=== PATIENT | male | born 1945 | race Caucasian/White ===

== ENCOUNTER → 2020-02-17 | Outpatient (CLI) | payer MEDICARE, OTHER | LOC: ZCOL.LAB 12:35 | DX: Z00.00 Encounter for general adult medical examination without abnormal findings (principal) ==

== ENCOUNTER → 2020-02-18 | Outpatient (CLI) | payer MEDICARE, OTHER ==
[2020-02-18 10:00] LABS: BASO # 0.1 (0.0-0.2); BASO % 0.6 % (0.0-2.0); EOS # 0.3 (0.0-0.7); EOS % 2.5 % (0-4.0); GRAN # 5.7 (1.4-6.5); GRAN % 58.1 % (42.2-75.2); HEMATOCRIT 47.4 % (42.0-52.0); HEMOGLOBIN 15.5 g/dl (13.5-18.0); LYMPH # 2.6 (1.2-3.4); LYMPH % 26.3 % (20.0-51.0); MEAN CELL VOLUME 89 fl (80.0-100.0); MEAN CORPUSCULAR HEMOGLOBIN 29 pg (27.0-31.0); MEAN CORPUSCULAR HGB CONC 33 g/dl (33.0-37.0); MEAN PLATELET VOLUME 10.1 fl (7.4-10.4); MONO # 1.2 (0.1-0.6); MONO % 12.3 % (1.7-9.3); PLATELET COUNT 197 K/mm3 (130-400); RED BLOOD COUNT 5.32 M/mm3 (4.20-5.60); REDCELL DISTRIBUTION WIDTH-CV 13.2 % (11.5-14.5)
== END ==
LOC: ZCOL.LAB 09:49
PROVIDERS: Internal Medicine
DX: Z00.00 Encounter for general adult medical examination without abnormal findings (principal)

== ENCOUNTER → 2020-03-16 | Outpatient (CLI) | payer MEDICARE, OTHER | LOC: ZCOL.LAB 17:19 | DX: E61.2 Magnesium deficiency (principal) ==

== ENCOUNTER 2020-11-07 17:41 | Inpatient (IN) | payer MEDICARE ==
[~2020-11-07] VITALS: Ht 177.8 cm; Wt 82.5 kg
[2020-11-07 18:30] LABS: BASO % 0.2 % (0.0-2.0); EOS # 0.1 (0.0-0.7); EOS % 0.4 % (0-4.0); GRAN # 13.3 (1.4-6.5); GRAN % 83.1 % (42.2-75.2); HEMATOCRIT 46.7 % (42.0-52.0); HEMOGLOBIN 15.1 g/dl (13.5-18.0); LYMPH # 1.2 (1.2-3.4); LYMPH % 7.2 % (20.0-51.0); MEAN CELL VOLUME 90 fl (80.0-100.0); MEAN CORPUSCULAR HEMOGLOBIN 29 pg (27.0-31.0); MEAN CORPUSCULAR HGB CONC 32 g/dl (33.0-37.0); MEAN PLATELET VOLUME 10.2 fl (7.4-10.4); MONO # 1.4 (0.1-0.6); MONO % 8.5 % (1.7-9.3); PLATELET COUNT 196 K/mm3 (130-400); RED BLOOD COUNT 5.17 M/mm3 (4.20-5.60); REDCELL DISTRIBUTION WIDTH-CV 12.8 % (11.5-14.5)
[2020-11-07 18:32] LABS: MUCOUS Present /lpf; PH 5 (5-8); SQUAMOUS EPITHELIAL None Seen /hpf; URINE APPEARANCE Hazy; URINE BACTERIA None Seen /hpf; URINE BILIRUBIN Negative (NEGATIVE); URINE BLOOD Negative (NEGATIVE); URINE COLOR Yellow; URINE GLUCOSE Negative (NEGATIVE); URINE KETONE Negative (NEGATIVE); URINE LEUKOCYTE ESTERASE 1+ (NEGATIVE); URINE NITRATE Negative (NEGATIVE); URINE PROTEIN(semi-quant) 2+ (NEGATIVE); URINE RBC 20-50 /hpf; URINE UROBILINOGEN Negative (NEGATIVE); URINE WBC >50 /hpf
[2020-11-07 18:35] LABS: COLLECTION METHOD CLEAN CATCH
[2020-11-07 18:42] LABS: ALBUMIN 4.2 gm/dL (3.5-5.0); BILIRUBIN,TOTAL 0.4 mg/dL (0.0-1.0); CALCIUM 9.3 mg/dL (8.4-10.2); CREATININE, serum 0.88 (0.66-1.25); POTASSIUM 3.8 mmol/L (3.4-5.0); TOTAL PROTEIN 7.7 gm/dL (6.4-8.2)
[2020-11-07] MEDS ORDERED: TYLENOL 500MG500 MG PO ×2 (19:19→19:20)
[2020-11-07] MEDS ORDERED: LIPITOR 40MG TA40 MG PO (19:21)
[2020-11-07] MEDS ORDERED: ASPIRIN 81M81 MG/TA2 PO (19:21)
[2020-11-07] MEDS ORDERED: CENTRUM SILVER1 CTB PO (19:32)
[2020-11-07] MEDS ORDERED: DICLOFENAC SOD2.5 ML TOP ×2 (19:33→19:34)
[2020-11-07] MEDS ORDERED: ARICEPT10 MG (19:34)
[2020-11-07] MEDS ORDERED: ARICEPT10 MG PO (19:34)
[2020-11-07] MEDS ORDERED: MELATONIN 3 MG-1 TAB PO (19:35)
[2020-11-07] MEDS ORDERED: LASIX 20MG TABL20 MG PO (19:35)
[2020-11-07] MEDS ORDERED: TOPROL XL 50MG50 MG PO (19:36)
[2020-11-07] MEDS ORDERED: NITROSTAT0.4 MG/TAB SL (19:36)
[2020-11-07] MEDS ORDERED: OMEGA-3 1000 MG1 CAP PO (19:37)
[2020-11-07] MEDS ORDERED: PLAVIX 75MG TAB75 MG PO (19:38)
[2020-11-07] MEDS ORDERED: PROTONIX20 MG PO (19:38)
[2020-11-07] MEDS ORDERED: FLOMAX 0.40.4 MG/CAP PO (19:39)
[2020-11-07] MEDS ORDERED: TUMS DUAL ACTIO1 CTB (19:39)
[2020-11-07 22:11] VITALS: BP 147/67; PULSE 121; TEMP 98.8
[2020-11-08] VITALS (11 sets, daily range): BP systolic 110–145; BP diastolic 42–61; PULSE 98–109; TEMP 97.9–98.7
--- NOTE | 2020-11-08 01:40 | NUR ---
2129- ARRIVES TO FLOOR PER CART. TRANSFERD TO BED W SLIDE BOARD. NOT ALERT,VERY DROWSY. VS OBTAINED. RA. 3 LITERS N/C AND REPOSITIONED GOES TO 94%. JAEGER CATH INSERTED PER [facility] ATTENDANT. CLEAR YELLOW DRAINAGE TO DD. IV FLUIDS RUNNING ORDER. SCD APPLIED. PT WAKES SHORTLY ONLY DURING JAEGER INSERT BUT GOES BACK TO SLEEP. HAS WOKE A FEW TIMES AND PULLED AT LINES, MONITORING. SEVERE DEMENTIA REPORTED BY ER NURSE UNABLE TO OBTAIN HX FROM PT. USED CARE HOME PAPERWORK FOR MEDS/MAR. BLOOD CULTURES PENDING. ON TELE. ORTHO CONSULTED. PT IS NPO AT THIS TIME.
--- NOTE | 2020-11-08 06:03 | NUR ---
RESTED MOST OF THE NIGHT WITHOUT INCIDENT. WOULD OCC PULL AT CATH OR LINES. APPEARS TO BE UNAWARE OF BROKEN HIP. ORTHO ROUNDS THIS AM IT MAY 3 DAYS DUE TO BLOOD THINNER PLAVIX BEING TAKE BEFORE SURG CAN BE DONE.
--- NOTE | 2020-11-08 06:33 | NUR ---
DR WHEELER ORTHO DOC CALLS UNIT TO KEEP PT NPO MAY BE ABLE TO DO SUGERY TODAY AFTER ALL. ORDER PLACED.
--- NOTE | 2020-11-08 06:38 | NUR ---
ATTEMPTED TO INTERGRATE PACEMAKER. [employer] NOT RECONIZING. WILL PASS ON TO DAY SHIFT.
[2020-11-08 07:13] LABS: INR 1.3 (0.8-3.0); PROTHROMBIN TIME 14.6 SECONDS (9.7-12.8)
[2020-11-08 07:14] LABS: HEMATOCRIT 42.6 % (42.0-52.0); HEMOGLOBIN 13.8 g/dl (13.5-18.0); MEAN CELL VOLUME 89 fl (80.0-100.0); MEAN CORPUSCULAR HEMOGLOBIN 29 pg (27.0-31.0); MEAN CORPUSCULAR HGB CONC 32 g/dl (33.0-37.0); MEAN PLATELET VOLUME 9.8 fl (7.4-10.4); PLATELET COUNT 186 K/mm3 (130-400); RED BLOOD COUNT 4.79 M/mm3 (4.20-5.60); REDCELL DISTRIBUTION WIDTH-CV 12.8 % (11.5-14.5)
[2020-11-08 07:32] LABS: CALCIUM 8.6 mg/dL (8.4-10.2); CREATININE, serum 0.66 (0.66-1.25); MAGNESIUM 1.7 mg/dL (1.6-2.3); POTASSIUM 3.5 mmol/L (3.4-5.0)
[2020-11-08 09:24] LABS: BAND 2 % (0-10); EOSINOPHIL 2 % (0-4); LYMPHOCYTE 4 % (20.0-51.0); NEUTROPHILS 85 % (42.0-75.2)
[2020-11-08 09:27] LABS: PLATELET ESTIMATE NORMAL (NORMAL)
--- NOTE | 2020-11-08 09:30 | NUR ---
Patient confused, opens eyes to verbal stimuli, conversation inappropriate. RLE with pulses palpable, externally rotated and shortened. Ordoñez catheter in place to dependent drainage, draining clear yellow urine. No s/s pain or discomfort.
--- NOTE | 2020-11-08 09:57 | NUR ---
Director Operations contacted the patient's [facility] Sidney # to complete intake. The patient resides at [facility] in the Memory Care Unit. The patient does not use DME to ambulate and is independent with ADLs. The patient's PCP is Dr. Izquierdo. The patient does not have advanced directives in the EMR but Sidney sent a copy to this SW. A copy placed in the chart. [facility] designates Sidney as primary and Zelda Richardson ([id number]) as secondary. Due to the patient's hip facture the patient will likely be needing post acute rehab. SW discussed Medicare.gov's list of SNFs. The first choice is [facility] and second choice is [facility]. Referrals sent. Director Operations contacted KADY Joe with [facility]. She confirms the patient is from the memory care unit and is independent. The patient does have a cane but does not use it. He is not on oxygen at baseline. *Discharge disposition* SNF. Referrals sent to [facility] and [facility]. Awaiting screens.
--- NOTE | 2020-11-08 11:25 | NUR ---
To surgery with surgical staff at this time.
--- NOTE | 2020-11-08 15:15 | NUR ---
Returns from surgery at this time. Assessment unchanged except RLE with incision CDI, Aquacel in place. No s/s pain noted.
--- NOTE | 2020-11-08 20:00 | NUR ---
Patient opens eyes to this nurse speaking. Assisted patient in eating some of his clear liquids. Patient is alert but not oriented. Does not answer questions appropriately. Mits put on patient's hands because he was pulling at his IV and catheter. Ordoñez catheter draining clear yellow urine. Aqaucell to right hip clean, dry, and intact. SCDs and teds on bilateral lower extremities. Bed alarm on.
--- NOTE | 2020-11-08 22:00 | NUR ---
Patient restless and had gotten the mits off. He was pulling at his catheter. Mits put back on. Tylenol and melatonin administered.
[2020-11-09] VITALS (7 sets, daily range): BP systolic 98–137; BP diastolic 43–67; PULSE 84–102; TEMP 97.1–99
--- NOTE | 2020-11-09 06:00 | NUR ---
When entering room this morning, patient's IV was on the floor and patient had blood on his gown. PAtient was cleaned up and a new IV was put in his right forearm. Ramys put back on patient.
[2020-11-09 06:43] LABS: HEMATOCRIT 37.8 % (42.0-52.0); HEMOGLOBIN 12.1 g/dl (13.5-18.0); MEAN CELL VOLUME 92 fl (80.0-100.0); MEAN CORPUSCULAR HEMOGLOBIN 29 pg (27.0-31.0); MEAN CORPUSCULAR HGB CONC 32 g/dl (33.0-37.0); MEAN PLATELET VOLUME 10.3 fl (7.4-10.4); PLATELET COUNT 179 K/mm3 (130-400); RED BLOOD COUNT 4.13 M/mm3 (4.20-5.60); REDCELL DISTRIBUTION WIDTH-CV 12.9 % (11.5-14.5)
[2020-11-09 07:03] LABS: CALCIUM 8.8 mg/dL (8.4-10.2); CREATININE, serum 0.63 (0.66-1.25); MAGNESIUM 1.7 mg/dL (1.6-2.3); POTASSIUM 3.9 mmol/L (3.4-5.0)
[2020-11-09 07:21] LABS: BAND 8 % (0-10); LYMPHOCYTE 5 % (20.0-51.0); NEUTROPHILS 76 % (42.0-75.2); PLATELET ESTIMATE NORMAL (NORMAL)
--- NOTE | 2020-11-09 07:45 | NUR ---
Upon entering patient room, patient had removed telemetry box, pulled IV out, removed gown, removed mattson catheter from statlock and removed oxygen tubing. This was second IV place r/t patient pulling them out in the last hour. Mattson catheter removed for patient safety. Patient educated on need for all of the above. No c/o at this time.
--- NOTE | 2020-11-09 12:23 | NUR ---
Patient alert, pleasantly confused. See assessment. RLE with Aquacel CDI, no redness noted around dressing. Pulses palpable to RLE, limited ROM. FWB. No c/o numbness or tingling. No c/o at this time.
--- NOTE | 2020-11-09 13:21 | NUR ---
FOUND ON RA 73% . PLACED BACK ON 4 LPM NC 91% RN NOTIFIED
--- NOTE | 2020-11-09 13:30 | NUR ---
Initial visit; Patient thanked Serger for looking in on him and offering God's blessings.
--- NOTE | 2020-11-09 15:17 | NUR ---
Tyshawn with [facility] reports the team has no current concerns about admitting the patient when ready. Occupational Therapist faxed udpates to [facility] and [facility]. *Discharge disposition* [facility] for SNF then transition back to [facility]
--- NOTE | 2020-11-10 03:21 | NUR ---
Patient incontinent of urine and had taken his gown and tele off. Cleaned patient up, gave bed bath, and put tele back on. Patient is now sleeping with unlabored breathing. Bed alarm on.
[2020-11-10 03:24] VITALS: BP 127/52; PULSE 93; TEMP 97.6
[2020-11-10 07:06] LABS: CALCIUM 8.5 mg/dL (8.4-10.2); CREATININE, serum 0.69 (0.66-1.25); POTASSIUM 3.7 mmol/L (3.4-5.0)
[2020-11-10 07:07] LABS: HEMATOCRIT 37.1 % (42.0-52.0); HEMOGLOBIN 12.1 g/dl (13.5-18.0); MEAN CELL VOLUME 89 fl (80.0-100.0); MEAN CORPUSCULAR HEMOGLOBIN 29 pg (27.0-31.0); MEAN CORPUSCULAR HGB CONC 33 g/dl (33.0-37.0); MEAN PLATELET VOLUME 10.4 fl (7.4-10.4); PLATELET COUNT 166 K/mm3 (130-400); RED BLOOD COUNT 4.16 M/mm3 (4.20-5.60); REDCELL DISTRIBUTION WIDTH-CV 12.9 % (11.5-14.5)
[2020-11-10 07:51] LABS: EOSINOPHIL 8 % (0-4); LYMPHOCYTE 8 % (20.0-51.0); NEUTROPHILS 75 % (42.0-75.2); PLATELET ESTIMATE NORMAL (NORMAL)
[2020-11-10 07:52] LABS: HYPOCHROMIA 2+
[2020-11-10 08:32] VITALS: BP 132/61; PULSE 82; TEMP 98.8
[2020-11-10] MEDS ORDERED: AMOXICILLIN 8751 TAB PO (08:46)
[2020-11-10] MEDS ORDERED: OSCAL 500 TAB500 MG PO (08:47)
[2020-11-10] MEDS ORDERED: VITAMIN C500 MG PO (08:48)
[2020-11-10] MEDS ORDERED: ROXICODONE 55 MG/TAB PO (08:49)
[2020-11-10 11:00] VITALS: BP 132/61; PULSE 82; TEMP 98.8
--- NOTE | 2020-11-10 11:21 | NUR ---
The patient is to discharge today, 11/10 to [facility] for post acute rehab. After post acute rehab the patient will transition back to [facility] Memory Care Unit. Polystyrene Molding Machine Tender faxed discharge orders. The patient transported at 1100. SW contacted the patient's son, Sidney to provide the above update. He was in agreeance. ARNULFO presented the IM form to Sidney. He verbalized understanding and gave this SW permission to sign on his behalf. A copy provided to the patient and original placed in the chart. There are no additional needs at this time.
--- NOTE | 2020-11-10 12:26 | NUR ---
Patient alert, confused per his norm. See assessment. RLE with dressing CDI, no redness noted around dressing. Pulses palpable to BLE. C/o pain to RLE with movement. RAMYA hose and SCDs in place. No c/o at this time.
--- NOTE | 2020-11-10 13:41 | NUR ---
Report called to Heather at [facility]. Patient transferred to [facility] via wheelchair with transporations staff at 1335. Paperwork sent.
== END 2020-11-10 13:35 | DRG 522 ==
LOC: COL.ER 17:41 → SURG 19:03 → COL.ER 19:03 → SURG 11-08 12:50
PROVIDERS: Internal Medicine; Nurse Practitioner Primary Care; Orthopaedic Surgery; Physician Assistant; Student in an Organized Health Care Education/Training Program; ADMIT Hospitalist
PROC: 0SRR0J9 Replacement of Right Hip Joint, Femoral Surface with Synthetic Substitute, Cemented, Open Approach (ICD-10-PCS; principal; 2020-11-08 10:00)
DX: S72.001A Fracture of unspecified part of neck of right femur, initial encounter for closed fracture (principal); N39.0 Urinary tract infection, site not specified; J98.11 Atelectasis; E78.5 Hyperlipidemia, unspecified; I25.10 Atherosclerotic heart disease of native coronary artery without angina pectoris; K21.9 Gastro-esophageal reflux disease without esophagitis; I12.9 Hypertensive chronic kidney disease with stage 1 through stage 4 chronic kidney disease, or unspecified chronic kidney disease; R94.31 Abnormal electrocardiogram [ECG] [EKG]; Z66 Do not resuscitate; N18.9 Chronic kidney disease, unspecified; N40.0 Benign prostatic hyperplasia without lower urinary tract symptoms; E78.00 Pure hypercholesterolemia, unspecified; I25.2 Old myocardial infarction; G30.9 Alzheimer's disease, unspecified; R09.02 Hypoxemia; F02.80 Dementia in other diseases classified elsewhere, unspecified severity, without behavioral disturbance, psychotic disturbance, mood disturbance, and anxiety; Z20.822 Contact with and (suspected) exposure to COVID-19; Z95.0 Presence of cardiac pacemaker; Z95.1 Presence of aortocoronary bypass graft; Z79.82 Long term (current) use of aspirin; Z87.891 Personal history of nicotine dependence; Z95.3 Presence of xenogenic heart valve; W19.XXXA Unspecified fall, initial encounter
CPT/HCPCS: 99223-AI; 99232-AI; 99233-AI; 99239; C1713; C1776; J0690; J0696; J1100; J2270; J2370; J2405; J2704; J3010; J7030; J7120

== ENCOUNTER 2020-11-11 12:25 | Emergency (ER) | payer MEDICARE ==
[~2020-11-11 12:25] MED LIST: AMOXICILLIN 8751 TAB PO; ARICEPT10 MG; ARICEPT10 MG PO; ASPIRIN 81M81 MG/TA2 PO; CENTRUM SILVER1 CTB PO; DICLOFENAC SOD2.5 ML TOP; FLOMAX 0.40.4 MG/CAP PO; LASIX 20MG TABL20 MG PO; LIPITOR 40MG TA40 MG PO; MELATONIN 3 MG-1 TAB PO; NITROSTAT0.4 MG/TAB SL; OMEGA-3 1000 MG1 CAP PO; OSCAL 500 TAB500 MG PO; PLAVIX 75MG TAB75 MG PO; PROTONIX20 MG PO; ROXICODONE 55 MG/TAB PO; TOPROL XL 50MG50 MG PO; TUMS DUAL ACTIO1 CTB; TYLENOL 500MG500 MG PO; VITAMIN C500 MG PO
[2020-11-11 14:29] VITALS: BP 150/68; PULSE 77; TEMP 97.8
== END 2020-11-11 14:33 | disposition home or self-care (01) ==
LOC: COL.ER 12:25
DX: R06.00 Dyspnea, unspecified (principal); Z95.0 Presence of cardiac pacemaker; Z95.1 Presence of aortocoronary bypass graft; Z79.82 Long term (current) use of aspirin

== ENCOUNTER → 2020-11-17 | Outpatient (CLI) | payer MEDICARE | LOC: ZCOL.LAB 10:19 | DX: Z79.02 Long term (current) use of antithrombotics/antiplatelets (principal) ==

== ENCOUNTER → 2020-11-27 | Outpatient (REF) | LOC: ZCOL.LAB 11:20 | DX: L08.9 Local infection of the skin and subcutaneous tissue, unspecified (principal) ==

== ENCOUNTER 2021-10-16 14:41 | Inpatient (IN) | payer MEDICARE ==
[~2021-10-16] VITALS: Wt 76.8 kg
[~2021-10-16 14:41] MED LIST changes: +VOLTAREN GEL 1%1 TU TP
[2021-10-16 15:38] LABS: BASO # 0.1 K/mm3 (0.0-0.2); BASO % 0.7 % (0.0-2.0); EOS # 0.1 K/mm3 (0.0-0.7); GRAN # 6.8 K/mm3 (1.4-6.5); GRAN % 73.4 % (42.2-75.2); HEMATOCRIT 43.5 % (42.0-52.0); HEMOGLOBIN 14.7 g/dl (13.5-18.0); LYMPH # 1.4 K/mm3 (1.2-3.4); LYMPH % 14.9 % (20.0-51.0); MEAN CELL VOLUME 86 fl (80.0-100.0); MEAN CORPUSCULAR HEMOGLOBIN 29 pg (27-31); MEAN CORPUSCULAR HGB CONC 34 g/dl (33.0-37.0); MEAN PLATELET VOLUME 9.5 fl (7.4-10.4); MONO # 0.9 K/mm3 (0.1-0.6); MONO % 9.7 % (1.7-9.3); PLATELET COUNT 183 K/mm3 (130-400); RED BLOOD COUNT 5.04 M/mm3 (4.20-5.60)
[2021-10-16 15:49] LABS: ALBUMIN 3.5 gm/dL (3.4-4.8); BILIRUBIN,TOTAL 0.4 mg/dL (0.2-1.2); CALCIUM 8.7 mg/dL (8.4-10.2); CREATININE, serum 1.01 mg/dL (0.72-1.25)
[2021-10-16 16:59] LABS: COLLECTION METHOD CLEAN CATCH
[2021-10-16 17:14] LABS: MUCOUS Present (NOT PRESENT); PH 5 (5-8); SQUAMOUS EPITHELIAL 0-2 /hpf (0-10); URINE APPEARANCE Hazy (CLEAR/HAZY); URINE BACTERIA Rare /hpf (NONE SEEN); URINE BILIRUBIN Negative (NEGATIVE); URINE BLOOD Negative (NEGATIVE); URINE COLOR Yellow (YELLOW); URINE GLUCOSE Negative (NEGATIVE); URINE KETONE Negative (NEGATIVE); URINE LEUKOCYTE ESTERASE 2+ (NEGATIVE); URINE NITRATE Negative (NEGATIVE); URINE PROTEIN(semi-quant) Negative (NEGATIVE); URINE UROBILINOGEN Negative (NEGATIVE)
[2021-10-16 18:26] LABS: INR 1.2 (0.8-3.0); PROTHROMBIN TIME 13.3 SECONDS (9.7-12.8)
[2021-10-16 18:48] VITALS: BP 165/56; PULSE 103; TEMP 97.6
[2021-10-16 19:26] VITALS: BP 138/60; PULSE 107; TEMP 98.4
--- NOTE | 2021-10-16 20:00 | NUR ---
PATIENT IS CONFUSED AT BASELINE AND HAS A HX OF DEMENTIA. HE LIVES AT [facility]. DNR STATUS. NOTED ELEVATED B/P IN THE 160'S SYSTOLIC AND HR OF 103 AND OXYGEN SAT AT RA WAS 87-88%. PATIENT PLACED ON 02 @ 2L PER NC AND SATS ARE NOW IN MID 90'S. PATIENT SEEMS TO BE AGGITATED AND IN PAIN. GAVE PRN IV MORPHINE PER ORDERS AND IS NOW RESTING. TEDS & SCD'S TO BLE. JAEGER TO DD WITH SMALL AMOUNTS OF CLEAR YELLOW URINE NOTED. IV FLUIDS NOW STARTED PER ORDERS AND INFUSING VIA PUMP INTO RIGHT AC. NPO AFTER MIDNIGHT FOR POSSIBLE SX IN AM. NOTIFIED HOSPITALIST OF , SEE ORDERS FOR IV ANTIBIOTIC. HEAD TO TOE ASSESSMENT COMPLETE. NO OTHER NEEDS AT THIS TIME. LIGHTS TURNED DOWN. CALL LIGHT IN REACH. BED ALARM ON.
[2021-10-16 23:53] VITALS: BP 145/62; PULSE 102; TEMP 99.6
[2021-10-17] VITALS (13 sets, daily range): BP systolic 105–161; BP diastolic 41–70; PULSE 91–109; TEMP 97.5–100.1
--- NOTE | 2021-10-17 10:13 | NUR ---
Patient resting in bed this am. Patient Awake & alert. When asked his birthday he gave the correct month, but wrong date and year. He does not complain about pain, but grimacing noted with movement. Awaiting cardiac clearance from, Gilberto Brown was paged this am. Echo & ekg completed this am.
--- NOTE | 2021-10-17 10:19 | NUR ---
Hospitalist rounding. we discussed cares
--- NOTE | 2021-10-17 11:00 | NUR ---
Patient repositioned in bed & bed bath given. Orals cares provided. Ordoñez cares completed. Morphine for pain after repositioning.
[2021-10-17 13:01] LABS: HEMATOCRIT 44.1 % (42.0-52.0); HEMOGLOBIN 14.5 g/dl (13.5-18.0)
--- NOTE | 2021-10-17 13:30 | NUR ---
Pt off the floor for surgery
--- NOTE | 2021-10-17 13:45 | NUR ---
Patient to the Or with Tyrone brice.
--- NOTE | 2021-10-17 13:48 | NUR ---
electric utility lineworker contacted patient's son Sidney via phone to complete intake. Patient currently resides at [facility] and has a history of dementia. Sidney reports that [facility] the [facility] have to help the patient with his ADL's but that the patient is able to walk on his own. Sidney states that he lives out of town and was hoping to make it here today but is unable to make this happen. He is unknown if he will make it to [place] while his father is here. [facility] contacted and spoke with cad intern. RN states that the patient is mainly independent with his ADL's and doesn't think that the staff helps with anything. Rn states that if he does need help with his ADL's it " very minimal". Rn does confirm that the patient is able to ambulate without any DME. Patient has no home oxygen needs. PCP per [facility] is Virginia Cole and his medications are managed through the jail. Patient does have a DPOA_HC established and a copy can be locaed in his EMR. Discharge plan: [facility] under SNF
--- NOTE | 2021-10-17 14:52 | NUR ---
Face Cleaner faxed SNF referral to [facility].
--- NOTE | 2021-10-17 19:26 | NUR ---
Patient resting post op, he is drowsy but responsive. Vss on O2. Left hip aquacell dressing Cdi. Teds & Scds Ble. Ice pack to hip. Ivf per orders. Report to juaquin
--- NOTE | 2021-10-17 20:30 | NUR ---
PT IN BED. ROUSES TO NAME, DOES NOT VERBALIZE. ABLE TO TAKE PO MEDS WITHOUT PROBLEM. DINNER TRAY FED BY STAFF. PT HAS JAEGER TO BSD, YELLOW URINE. RESTARTED IV SITE TO RFA, DC'D RAC SITE, ANGIOCATH INTACT. HAS OXYGEN AT 2L/NC. AQUACEL DRSG INTACT TO LEFT HIP.
[2021-10-18 04:48] VITALS: BP 120/45; PULSE 86; TEMP 97.5
[2021-10-18 06:00] LABS: HEMATOCRIT 37.1 % (42.0-52.0)
--- NOTE | 2021-10-18 06:00 | NUR ---
PT HAS RESTED WELL. VERBALIZING MORE THIS MORNING. HOLDING WATER CUP AND TAKING PO MED WITHOUT PROBLEM. ICE PACK REPLACED TO LEFT HIP.
[2021-10-18 06:09] LABS: HEMOGLOBIN 12.6 g/dl (13.5-18.0)
[2021-10-18 08:00] VITALS: BP 133/49; PULSE 91; TEMP 97.6
[2021-10-18 08:35] LABS: CALCIUM 8.2 mg/dL (8.4-10.2); CREATININE, serum 0.84 mg/dL (0.72-1.25)
--- NOTE | 2021-10-18 09:27 | NUR ---
Initial visit; Patient awake though not verbal. Stations Superintendent offered God's blessings and let Tone know she will keep him in her prayers. Patient's eyes seemed to follow Stations Superintendent's so it is a possibility that he heard and understands Stations Superintendent's message.
--- NOTE | 2021-10-18 10:26 | NUR ---
Induction Brazer faxed clinical updates to Maryann at [facility].
--- NOTE | 2021-10-18 10:30 | NUR ---
JAEGER CATHETER DCED PER ORDERS, KELVIN CARE COMPLETED. PT IS SITTING UP IN CHAIR, WAS ASSISTED BY PHYSICAL THERAPY. PT IS NON VERBAL BUT STATES "DON'T" WHILE KELVIN CARE IS COMPLETED. MOVES EXTREMITIES BUT SLOWLY ET DOES NOT OBEY COMMANDS, DOES MAKE EYE CONTACT. PT CANNOT COMPREHEND EDUCATION OR INSTRUCTIONS. PT HAS SLEPT THROUGH MORNING, AWAKENS EASILY TO HIS NAME. PT DOES REFUSE TO EAT BREAKFAST, STATES "DON'T" WHEN ATTEMPTS ARE MADE TO FEED HIM. CHAIR ALARM IS ON. RESPIRATIONS UNLABORED.
[2021-10-18 11:54] VITALS: BP 148/92; PULSE 67; TEMP 97.2
--- NOTE | 2021-10-18 13:38 | NUR ---
PT IS MORE ALERT @ THIS TIME, ATE 50% OF LUNCH WITH FULL ASSISTANCE. RESPIRATIONS UNLABORED ON ROOM AIR. PT CONTINUES TO BE MOSTLY NONVERBAL BUT DOES STATE YES, NO ET OKAY. PT REPOSITIONED IN CHAIR WITH ASSISTANCE OF 2.
--- NOTE | 2021-10-18 15:42 | NUR ---
PT WAS TRANSFERRED BACK INTO BED BY PHYSICAL THERAPY. PT APPEARS TO BE SLEEPING, RESPIRATIONS UNLABORED. BED ALARM IS ON.
[2021-10-18 16:00] VITALS: BP 115/45; PULSE 91; TEMP 99.1
--- NOTE | 2021-10-18 16:25 | NUR ---
PT HAS NOT YET URINATED SINCE JAEGER CATHETER WAS DCED THIS AM. PT HAS BEEN SLEEPY ET NOT HAD MUCH TO DRINK. IVF HAS BEEN INFUSING @ 60 ML/HR. BLADDER SCAN COMPLETED ET SHOWS 155 ML. Cosme HERRERA CALLED ET NOTIFIED. ORDERS RECIEVED TO ENCOURAGE ORAL FLUIDS ET BLADDER SCAN PT AGAIN IN 1 HR.
--- NOTE | 2021-10-18 17:02 | NUR ---
PT CONTINUES TO BE VERY DROWSY, DOES AWAKEN TO HIS NAME BUT WILL NOT OBEY COMMANDS TO DRINK WATER WHEN STRAW IS PLACED @ HIS LIPS. PT THEN QUICKLY FALLS BACK ASLEEP.
--- NOTE | 2021-10-18 18:08 | NUR ---
PT WAS BLADDER SCANNED AGAIN RESULTING IN 216 ML. IVF INFUSING. PT HAS ONLY BECOME ALERT ENOUGH IN THE LAST 15 MINUTES TO DRINK OR EAT. PT IS UNABLE TO HOLD WATER GLASS ON OWN ET REQUIRES ASSISTANCE. Dean HANKS APRN NOTIFIED. ORDERS RECEIVED TO INCREASE IVF ET BLADDER SCAN AGAIN IN 1 HR. IVF INCREASED TO 75 ML/HR. PT IS REPOSITIONED WITH 2 ASSIST, GRIMACES WITH MOMENT, SITTING UP IN BED TO PREPARE FOR DINNER TRAY. BED ALARM IS ON.
[2021-10-18 19:49] VITALS: BP 143/53; PULSE 119; TEMP 98.8
--- NOTE | 2021-10-18 21:00 | NUR ---
Pt. laying in bed wih eyes closed. Pt. arousable to touch stimuli. Pt. is confused. Pt. does not verbally respond to me, but does take pills. Pt. able to handle cup with minimal assist. Pills poured into pt.'s mouth a few at time. Pt. with no difficulty swollowing pills. Pt. does not appear to have any further needs, call light within reach, bed alarm on.
[2021-10-18 23:52] VITALS: BP 123/49; PULSE 108; TEMP 98.5
--- NOTE | 2021-10-19 00:07 | NUR ---
Pt. incontinent of urine. Bed was completly saturated with urine.
[2021-10-19 03:33] VITALS: BP 148/56; PULSE 99; TEMP 98.1
[2021-10-19 06:17] LABS: HEMOGLOBIN 12.1 g/dl (13.5-18.0); MEAN CELL VOLUME 88 fl (80.0-100.0); MEAN CORPUSCULAR HEMOGLOBIN 30 pg (27-31); MEAN CORPUSCULAR HGB CONC 33 g/dl (33.0-37.0); MEAN PLATELET VOLUME 11.3 fl (7.4-10.4); PLATELET COUNT 149 K/mm3 (130-400); REDCELL DISTRIBUTION WIDTH-CV 13.2 % (11.5-14.5)
[2021-10-19 06:22] LABS: HEMATOCRIT 36.2 % (42.0-52.0)
[2021-10-19 06:35] LABS: CALCIUM 8.7 mg/dL (8.4-10.2); CREATININE, serum 0.77 mg/dL (0.72-1.25); POTASSIUM 4.1 mmol/L (3.5-4.5)
[2021-10-19 07:17] LABS: BAND 3 % (0-10); EOSINOPHIL 2 % (0-4); LYMPHOCYTE 4 % (20.0-51.0); NEUTROPHILS 77 % (42.0-75.2)
[2021-10-19 07:18] LABS: PLATELET ESTIMATE NORMAL (NORMAL)
[2021-10-19 07:47] VITALS: BP 116/55; PULSE 102; TEMP 98.7
[2021-10-19] MEDS ORDERED: OMNICEF 300MG300 MG PO (08:45)
--- NOTE | 2021-10-19 09:24 | NUR ---
clearing tub worker contacted [facility] and Maryann at [facility] to notify of patient's discharge. Unable to reach Maryann and message left. Clinical updates and discharge orders faxed to [facility]. Ketty swab requested. Attempt made to contact the patient's son/DPOA-[facility] Sidney to review the MCR.IM. Unable to reach. Brief update provided on voicemail and request made for call back. Discharge plan: [facility] SNF/AL
--- NOTE | 2021-10-19 10:01 | NUR ---
ARNULFO received phone call from Maryann at [facility]. Maryann states that she can have transportation here at 1100 to pick the patient up. Informed her that the patient will need a wheelchair but that we have weaned the patient off of oxygen and that they do not need to bring any for transport. At this time i am still unable to get ahold of the patient's son to review the MCR.IM form. Patient's RN notified of the above. Discharge plan: [facility] SNF/AL @1100
--- NOTE | 2021-10-19 11:05 | NUR ---
PT IS TO BE DISCHARGED BACK TO [facility]. PT IS INTERMITTENTLY VERBAL ET OBEYS COMMANDS, WILL MAKE SHORT STATEMENTS. PT IS SITTING UP IN RECLINER CHAIR. RESPIRATIONS UNLABORED. IV DCED FROM RIGHT FA, CATHETER TIP INTACT.
--- NOTE | 2021-10-19 12:02 | NUR ---
REPORT CALLED TO [facility] ET GIVEN TO MENG. PT LEFT WITH [facility] @ [phone].
--- NOTE | 2021-10-19 15:01 | NUR ---
Attempt made to contact the patient's son Sidney/ELIO to go over the [facility].IM form. Was successful and form reviewed over phone with him. Sidney verbalizes no concerns with the patient going back to [facility] today and that " you guys have taken good care of him". Notified Sidney that the patient left our facility around 1100. Original of completed IM form placed in the patients chart. Copy will be certified mailed to Sidney.
[2021-10-22] MEDS ORDERED: TYLENOL 500MG500 MG PO (03:33)
[2021-10-22] MEDS ORDERED: ASPIRIN 32325 MG/TAB PO (03:34)
[2021-10-22] MEDS ORDERED: MELATIN 3 MG-11 TAB PO (03:35)
[2021-10-22] MEDS ORDERED: TUMS ULTRA ST1000 MG PO (03:38)
== END 2021-10-19 11:23 | DRG 522 ==
LOC: COL.ER 14:41 → SURG 17:21
PROVIDERS: Family Medicine; Nurse Anesthetist, Certified Registered; Orthopaedic Surgery; Physician Assistant; ADMIT Student in an Organized Health Care Education/Training Program
PROC: 0SRS0J9 Replacement of Left Hip Joint, Femoral Surface with Synthetic Substitute, Cemented, Open Approach (ICD-10-PCS; principal; 2021-10-17 14:30)
DX: S72.002A Fracture of unspecified part of neck of left femur, initial encounter for closed fracture (principal); Q21.1 Atrial septal defect; N39.0 Urinary tract infection, site not specified; F03.90 Unspecified dementia, unspecified severity, without behavioral disturbance, psychotic disturbance, mood disturbance, and anxiety; I25.10 Atherosclerotic heart disease of native coronary artery without angina pectoris; E78.5 Hyperlipidemia, unspecified; K21.9 Gastro-esophageal reflux disease without esophagitis; I12.9 Hypertensive chronic kidney disease with stage 1 through stage 4 chronic kidney disease, or unspecified chronic kidney disease; N18.9 Chronic kidney disease, unspecified; N40.0 Benign prostatic hyperplasia without lower urinary tract symptoms; H91.90 Unspecified hearing loss, unspecified ear; I65.23 Occlusion and stenosis of bilateral carotid arteries; R32 Unspecified urinary incontinence; W18.30XA Fall on same level, unspecified, initial encounter; Y93.89 Activity, other specified; Y92.128 Other place in nursing home as the place of occurrence of the external cause; I25.2 Old myocardial infarction; Z95.5 Presence of coronary angioplasty implant and graft; Z95.0 Presence of cardiac pacemaker; Z79.82 Long term (current) use of aspirin; Z95.1 Presence of aortocoronary bypass graft; Z20.822 Contact with and (suspected) exposure to COVID-19
CPT/HCPCS: 99222-AI; 99232-AI; 99233-AI; 99239; A9284; C1776; J0690; J0696; J1100; J2270; J2370; J2405; J2704; J2795; J3010; J7030; J7120

== ENCOUNTER → 2021-11-01 | Outpatient (CLI) | payer MEDICARE ==
[~2021-11-01] MED LIST changes: +ASPIRIN 32325 MG/TAB PO; +MELATIN 3 MG-11 TAB PO; +OMNICEF 300MG300 MG PO; +TUMS ULTRA ST1000 MG PO
[2021-11-01 15:40] LABS: BASO # 0.1 K/mm3 (0.0-0.2); BASO % 0.9 % (0.0-2.0); EOS # 0.2 K/mm3 (0.0-0.7); GRAN # 7.3 K/mm3 (1.4-6.5); GRAN % 69.4 % (42.2-75.2); HEMOGLOBIN 11.3 g/dl (13.5-18.0); LYMPH # 1.6 K/mm3 (1.2-3.4); LYMPH % 15.1 % (20.0-51.0); MEAN CELL VOLUME 93 fl (80.0-100.0); MEAN CORPUSCULAR HEMOGLOBIN 29 pg (27-31); MEAN CORPUSCULAR HGB CONC 31 g/dl (33.0-37.0); MEAN PLATELET VOLUME 9.3 fl (7.4-10.4); MONO # 1.3 K/mm3 (0.1-0.6); MONO % 12.2 % (1.7-9.3); PLATELET COUNT 616 K/mm3 (130-400); RED BLOOD COUNT 3.89 M/mm3 (4.20-5.60); REDCELL DISTRIBUTION WIDTH-CV 14.5 % (11.5-14.5)
[2021-11-01 15:43] LABS: HEMATOCRIT 36.1 % (42.0-52.0)
== END ==
LOC: ZCOL.LAB 15:12
PROVIDERS: Internal Medicine
DX: I12.9 Hypertensive chronic kidney disease with stage 1 through stage 4 chronic kidney disease, or unspecified chronic kidney disease (principal); N18.9 Chronic kidney disease, unspecified